=== PATIENT | female | born 1955 | race Caucasian/White ===

== ENCOUNTER 2016-04-28 12:35 | Emergency (ER) | payer OTHER ==
[~2016-04-28] VITALS: Ht 157.5 cm; Wt 73.5 kg
[~2016-04-28 12:35] MED LIST: NOHOMEMEDS
[2016-04-28] MEDS ORDERED: LISINOPRIL10 MG PO (13:42)
[2016-04-28] MEDS ORDERED: EPIPEN ADU0.3 MG/0.3 IM ×2 (13:42→14:39)
[2016-04-28] MEDS ORDERED: SIMVASTATIN20 MG PO (13:43)
[2016-04-28] MEDS ORDERED: OMEPRAZOLE20 MG PO (13:43)
[2016-04-28] MEDS ORDERED: ROPINIROLE HCL2 MG PO (13:45)
[2016-04-28 14:57] VITALS: BP 150/73
== END 2016-04-28 15:00 | disposition home or self-care (01) ==
LOC: EME 12:35
DX: T63.441A Toxic effect of venom of bees, accidental (unintentional), initial encounter (principal); E78.5 Hyperlipidemia, unspecified; I10 Essential (primary) hypertension; F17.200 Nicotine dependence, unspecified, uncomplicated
CPT/HCPCS: 99281; 99284; J1100; J1200; J7030; S0028